=== PATIENT | male | born 1945 | race Caucasian/White ===

== ENCOUNTER 2023-11-10 08:17 | Outpatient (OUT) | payer MEDICARE, OTHER, SELFPAY ==
[2023-11-10 08:53] LABS: Basophils Absolute Auto 0.1 10^3/uL (0.0-0.1); Basophils Percent Auto 0.8 % (0.2-2.0); Eosinophils Absolute Auto 0.1 10^3/uL (0.0-0.7); Eosinophils Percent Auto 1.5 % (0.9-7.0); Hemoglobin 10.6 g/dL (14.0-18.0); Immature Granulocytes Abs Auto 0.02 10^3/uL (0.00-0.03); Immature Granulocytes Pct Auto 0.2 % (0.0-0.5); Lymphocytes Absolute Auto 1.3 10^3/uL (1.2-3.8); Lymphocytes Percent Auto 14.9 % (20.5-60.0); Mean Corpuscular HGB Conc 29.4 g/dL (29.9-35.2); Mean Corpuscular Hemoglobin 23.8 pg (25.9-34.0); Mean Corpuscular Volume 80.7 fL (80.0-94.0); Mean Platelet Volume 11.9 fL (9.5-13.5); Monocytes Absolute Auto 0.4 10^3/uL (0.3-0.8); Monocytes Percent Auto 4.6 % (1.7-12.0); Neutrophils Absolute Auto 6.8 10^3/uL (1.4-6.5); Platelet Count 262 10^3/uL (150-450); Red Blood Count 4.46 10^6/uL (4.70-6.10); Red Cell Distribution Width 15.9 % (11.0-15.0); White Blood Count 8.7 10^3/uL (4.0-11.0)
--- NOTE | 2023-11-10 09:00 | RT_ITS ---
[facility] Test Date: 2023-11-10 Pat Name: JAY HOBBS Department: Room: - Gender: Male Roving Can Tender: Michelle Goff RRT : 1945 Requested By: [id number] Order Number: [id number] Reading MD: Perfecto Rodriguez Interpretive Statements Pulmonary function testing was completed according to ATS criteria. Findings were considered accurate and reproducible. No bronchodilator was administered due to patient complaint of dyspnea and feeling lightheaded . No prior study available for comparison. Spirometry: -FEV1/FVC: Normal @ 74% -FEV1: Increased @ 122% -FVC: Normal @ 116% Diffusion capacity: -DLCO: Mild-moderate reduction @ 67% when corrected for Hb 10.6g/dL Flow-volume loop: -Normal shape Impressions: -Though technically normal, spirometry trends towards mild obstruction. Mild-moderate diffusion impairment. Study suggests mild emphysema. Clinical correlation required. Electronically Signed On 11-13-2023 7:35:04 EST by Perfecto Rodriguez
[2023-11-10 09:43] LABS: Alanine Aminotransferase 56 U/L (16-63); Albumin Globulin Ratio 1.1; Albumin Level 3.8 g/dL (3.4-5.0); Alkaline Phosphatase 63 U/L (46-116); Aspartate Amino Transferase 25 U/L (15-37); BUN Creatinine Ratio 17.3; Bilirubin Total 0.6 mg/dL (0.2-1.0); Calcium 9.2 mg/dL (8.5-10.1); Chloride 98 mmol/L (98-107); Estimated GFR (African America 35 (>=60); Estimated GFR (Non-African Ame 29 (>=60); Globulin 3.5 g/dL; Glucose 158 mg/dL (74-106); Sodium 136 mmol/L (136-145); Thyroid Stimulating Hormone 3.613 uIU/mL (0.358-3.740); Total Protein 7.3 g/dL (6.4-8.2)
[2023-11-10] MEDS: ALBUTEROL SULFATE 2.5 MG/3 ML VIAL NEB IH (09:48)
== END 2023-11-10 08:18 | disposition home or self-care (01) ==
LOC: CARD 08:21
PROVIDERS: Family Provider Family Medicine; PCP Internal Medicine Cardiovascular Disease; Visit Provider Internal Medicine Cardiovascular Disease
DX: I48.0 Paroxysmal atrial fibrillation (principal); Z79.899 Other long term (current) drug therapy; R06.02 Shortness of breath; R53.83 Other fatigue
CPT/HCPCS: 36415; 80053; 83880; 84443; 85025; 94010; 94060; 94729